=== PATIENT | female | born 1995 | race American Indian/Alaskan Native ===

== ENCOUNTER 2022-09-26 16:05 | Inpatient (IN) ==
[2022-09-26] MEDS ORDERED: OXYTOCIN 30 UNITS/500 ML BAG IV PRN ×2 (16:26→17:53)
[2022-09-26] MEDS ORDERED: LIDOCAINE 1% LOCAL 20 ML VIAL INFIL PRN (16:26)
[2022-09-26] MEDS ORDERED: LACTATED RINGER'S 1,000 ML IV PRN (16:26)
--- NOTE | 2022-09-26 17:17 | Delivery Summary ---
Vaginal Delivery Summary Date of Service September 26, 2022 Vaginal Delivery Summary Delivery Note Patient presented to L&D at 8cm unannounced with no GBS done by patient who refused test. She quickly had urge to push and found to be fully dilated and pushed with intact perineum to deliver precipitously a live male ALONDRA with nuchal cord x1 reduced at delivery of head. Apgars 8/9 weight pending. Cord blood obtained followed by spontaneous delivery of intact placenta. No tears. EBL 100 ml. Final sponge and instrument count are correct. Mom and baby stable.
[2022-09-26 17:24] LABS: Hematocrit (blood only) 33.2 % (37.0-47.0); Hemoglobin 11.2 g/dl (12.0-16.0); Mean Corpuscular Hemoglobin 29.9 pg (25.0-34.0); Mean Corpuscular Hgb Conc 33.7 g/dL (32.0-36.0); Mean Corpuscular Volume 88.5 fL (80.0-100.0); Platelet Count 258 K/uL (130-400); RDW Coefficient of Variation 13.3 % (11.5-14.5); RDW Standard Deviation 43.3 fL (36.4-46.3); Red Blood Count 3.75 M/uL (4.20-5.40); White Blood Count 10.31 K/ul (4.8-10.8)
[2022-09-26] MEDS ORDERED: BENZOCAINE 20% SPRY 85 APPLN/85 GM CAN EXT PRN (17:53)
[2022-09-26] MEDS ORDERED: DIPHTHERIA/TETANUS/PERTUSSIS Vaccine (Tdap, Age 7+yrs) 0.5mL SYR/VL IM ONE (17:53)
[2022-09-26] MEDS ORDERED: ACETAMINOPHEN 325 MG TAB PO PRN (17:53)
[2022-09-26] MEDS ORDERED: HYDROCORTISONE ACETATE 25 MG SUPP PR PRN (17:53)
[2022-09-26] MEDS ORDERED: bisacodyL 10 MG SUPP PR PRN (17:53)
[2022-09-26 20:23] LABS: Amphetamines+Metham, Urine Neg (Neg); Barbiturates, Urine Neg (Neg); Benzodiazepine, Urine Neg (Neg); Cocaine, Urine Neg (Neg); MDMA (Ecstacy), Urine Neg (Neg); Methadone, Urine Neg (Neg); Opiate, Urine Neg (Neg); Phencyclidine, Urine Neg (Neg)
[2022-09-26] MEDS: DOCUSATE SODIUM 100 MG CAP PO SCH (20:24)
[2022-09-26] MEDS: IBUPROFEN 600 MG TAB PO PRN (23:09)
[2022-09-27 06:17] LABS: Hemoglobin 10.1 g/dl (12.0-16.0); Mean Corpuscular Hemoglobin 29.8 pg (25.0-34.0); Mean Corpuscular Hgb Conc 33.7 g/dL (32.0-36.0); Mean Corpuscular Volume 88.5 fL (80.0-100.0); Mean Platelet Volume 10.6 fL (9.4-12.4); Platelet Count 236 K/uL (130-400); RDW Coefficient of Variation 13.4 % (11.5-14.5); RDW Standard Deviation 43.5 fL (36.4-46.3); Red Blood Count 3.39 M/uL (4.20-5.40); White Blood Count 10.79 K/ul (4.8-10.8)
[2022-09-27] MEDS ORDERED: PRENATAL VITAMIN 1 TAB PO SCH (08:00)
[2022-09-27] MEDS ORDERED: FERROUS SULFATE 325 MG TAB PO SCH (08:00)
[2022-09-27] MEDS: IBUPROFEN 600 MG TAB PO PRN (09:22)
[2022-09-27] MEDS: DOCUSATE SODIUM 100 MG CAP PO SCH (09:22)
--- NOTE | 2022-09-27 10:28 | Obstetrical Progress Note ---
Date of Service September 27, 2022 Subjective Ambulation: ambulating normally Voiding: no voiding problems Passing Gas:: Yes Diet Tolerance:: regular diet Lochia:: Small Feeding Type:: breast feeding Current Pain Level(1-10): 0 doing well wants to go home tonight Physical Exam Constitutional WD/WN, vitals as above Gastrointestinal (Abdomen) Inspection/Auscultation: abdomen normal to inspection abdomen soft and non-tender, uterus firm below U Musculoskeletal Extremities: extremities normal to inspection Skin no rashes, warm and dry Neurologic patellar DTR's 2+ bilat, sensation intact Psychiatric A+Ox3, euthymic affect Results & Data Vital Signs (Past 12 Hours) Vital Signs Temp Pulse Resp BP Pulse Ox O2 Del Method 09/27/22 04:25 36.9 C 85 16 132/79 09/26/22 23:15 36.6 C 66 18 125/79 98 Room Air Laboratory Results 09/26/22 09/26/22 09/27/22 16:58 19:13 05:43 WBC 10.31 10.79 RBC 3.75 L 3.39 L Hgb 11.2 L 10.1 L Hct 33.2 L 30.0 L MCV 88.5 88.5 MCH 29.9 29.8 MCHC 33.7 33.7 RDW Std Deviation 43.3 43.5 RDW Coeff of Angie 13.3 13.4 Plt Count 258 236 MPV 11.0 10.6 Urine Opiates Screen Neg Ur Methadone, Qual Neg Urine Barbiturates Neg Ur Phencyclidine (PCP) Neg U Amphetamin/Meth Scrn Neg MDMA (Ecstasy) Screen Neg U Benzodiazepines Scrn Neg Ur Cocaine Metabolite Neg U Marijuana (THC) Screen Neg
[2022-09-27] MEDS ORDERED: bisacodyL 5 MG TABEC PO SCH (20:00)
--- NOTE | 2022-09-29 15:48 | Coding Query ---
CODING QUERY To promote full compliance with coding requirements relating to patient care, provider participation is requested in all cases of student services director uncertainty. Please assist us with the question(s) below: Coding Question(s): Please document weeks of gestation Physician's Response(s): 40.5 Thank you Jolly Magali Principal Diagnosis: "that condition established after study, to be chiefly responsible for occasioning the admission of the patient to the hospital for care." Co-Existing Principal Diagnosis: "when two or more diagnoses equally meet the criteria for principal diagnosis as determined by the circumstances of admission, diagnostic work up, and/or therapy provided, and the Alphabetic Index, Tabular List, or another coding guideline does not provide sequencing direction, any one of the diagnoses may be sequenced first." "When the physician has documented what appears to be a current diagnosis in the body of the record, but has not included the diagnosis in the final diagnostic statement, the physician should be asked whether the diagnosis should be added." ([facility] 2 QTR90. p3-4) [facility]
== END 2022-09-27 19:05 | disposition home or self-care (01) | DRG 807 ==
LOC: OPB 16:05 → 4S1 16:06 → 4E2 20:26